=== PATIENT | male | born 1990 | race Caucasian/White ===

== ENCOUNTER 2020-09-18 18:01 | Emergency (ER) | payer OTHER ==
[2020-09-18] MEDS ORDERED: EPINEPHrine 1 MG/ML AMP IM STA ×3 (18:16→20:46)
[2020-09-18] MEDS ORDERED: predniSONE 20 MG TABLET PO STA (18:16)
--- NOTE | 2020-09-18 18:18 | ED Physician Documentation ---
History of Present Illness - Stated complaint Stated Complaint: ITCH/ALLERGIC REACTION/ABD PX - History obtained from History obtained from: Patient, Family - History of Present Illness Timing: Today Pain level max: 5 Pain level now: 5 - Additonal information Additional information: Patient is a 30-year-old male who was brought into the emergency department today by his spouse. About an hour prior to arrival he ate a cashew dip. 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 Started having a rash and difficulty breathing. Took 50 mg of Benadryl prior to arrival. Does not have an EpiPen. Nothing makes it better or worse. Review of Systems Ten Systems: 10 systems reviewed and negative Constitutional: denies: Fever, Chills Throat: denies: Sore throat Cardiac: denies: Chest pain / pressure Respiratory: reports: Dyspnea. denies: Cough GI: denies: Nausea, Vomiting, Diarrhea Skin: reports: Rash Musculoskeletal: denies: Neck pain, Back pain Neurologic: denies: Headache PD PAST MEDICAL HISTORY - Past Medical History Past Medical History: No - Past Surgical History Past Surgical History: No - Allergies Allergies/Adverse Reactions: Allergies Allergy/AdvReac Type Severity Reaction Status Date / Time cashew nut Allergy Anaphylaxis Verified 09/18/20 18:22 - Living Situation Living Situation: reports: With family Living Arrangement: reports: At home - Social History Does the pt smoke?: No Does the pt have substance abuse?: No PD ED PE NORMAL - Vitals Vital signs reviewed: Yes - General General: Alert and oriented X 3, No acute distress, Well developed/nourished - HEENT HEENT: PERRL, Ears normal, Moist mucous membranes, Other (Diffuse facial swelling. Normal oropharyngeal exam. No stridor or wheezing) - Neck Neck: Supple, no meningeal sign - Cardiac Cardiac: RRR, Strong equal pulses - Respiratory Respiratory: No respiratory distress, Clear bilaterally - Abdomen Abdomen: Soft, Non tender, Non distended - Back Back: No spinal TTP - Derm Derm: Warm and dry, Other (Diffuse urticaria covering the face, trunk, arms.) - Extremities Extremities: No edema, No calf tenderness / cord - Neuro Neuro: Alert and oriented X 3 - Psych Psych: Normal mood, Normal affect Results - Vitals Vitals: Vital Signs - 24 hr 09/18/20 09/18/20 09/18/20 18:16 21:13 21:54 Temperature 38.0 C H 36.6 C Heart Rate 93 100 101 H Respiratory 16 20 18 Rate Blood Pressure 98/73 132/63 H 132/59 H O2 Saturation 100 99 97 09/18/20 22:09 Temperature 36.6 C Heart Rate 100 Respiratory 20 Rate Blood Pressure 134/58 H O2 Saturation 95 Oxygen O2 Source Room air PD MEDICAL DECISION MAKING - ED course Complexity details: reviewed results, re-evaluated patient, considered differential, d/w patient, d/w family ED course: 30-year-old male with severe urticaria secondary to not exposure. Given epinephrine x2. Given steroids and Benadryl. Urticaria is slowly improving, still having abdominal pain and cramping. This is likely secondary to the ingestion of the nuts. We discussed observation, but the hospitalist does not feel that he meets criteria for observation. Therefore he will be observed in the emergency department to ensure that he is improving. Patient signed out to Dr. Johnson for further care. This document was made in part using voice recognition software. While efforts are made to proofread this document, sound alike and grammatical errors may occur. Departure - Departure Clinical Impression: Urticaria, Allergy to cashew nut Condition: Stable
[2020-09-18] MEDS ORDERED: methylPREDNISolone SUCCINATE 125 MG/2 ML VIAL IVP STA ×2 (18:53→21:03)
[2020-09-18] MEDS ORDERED: diphenhydrAMINE INJ 50 MG/ML VIAL IVP STA (18:54)
[2020-09-18] MEDS ORDERED: ONDANSETRON 4 MG/2 ML VIAL IVP STA (19:44)
[2020-09-18] MEDS ORDERED: fentaNYL 100 MCG/2 ML VIAL IVP STA (21:03)
[2020-09-19 02:40] VITALS: BP 112/78
[2020-09-19] MEDS ORDERED: ONDANSETRON ODT 4 MG Prepack 2 TL PRN (02:45)
--- NOTE | 2020-09-26 21:46 | ED Physician Documentation ---
ED Addendum - Addendum Addendum: 09/26/20 21:43 Care of patient turned over to me at change of shift. Patient presented for severe allergic reaction, ate nuts (to which he is known to be allergic, but he was not aware the food he ate had nuts in it). He is held for several hours in ED and on reevaluation by me prior to discharge, he is asleep, easily awoken. His vital signs are stable and he has 97-98% pulse ox on room air. He has mild, scattered urticaria on extremities but they are faded and without confluence. There is no urticaria on face, neck, back, or chest. He is comfortable with d/c home and is asymptomatic at time of discharge.
== END 2020-09-19 02:52 | disposition home or self-care (01) ==
LOC: ED 18:01
DX: T78.1XXA Other adverse food reactions, not elsewhere classified, initial encounter (principal); L50.0 Allergic urticaria; R10.9 Unspecified abdominal pain; X58.XXXA Exposure to other specified factors, initial encounter; Z91.018 Allergy to other foods
CPT/HCPCS: 96372; 96374; 96375; 99283; 99284; J7512